=== PATIENT | male | born 1935 | race American Indian/Alaskan Native ===

== ENCOUNTER 2017-05-16 14:01 | Emergency (ER) | payer MEDICARE ==
[2017-05-16 14:01] VITALS: BMI 25.8
[2017-05-16 14:11] VITALS: RESP 18
[2017-05-16] MEDS ORDERED: Sodium Chloride 0.9% 1,000 ML IV ONE (14:28)
[2017-05-16 14:55] LABS: BASO # 0.1 K/uL (0.0-0.2); BASO % 0.8 % (0.0-2.0); EOS # 0.3 K/uL (0.0-0.7); EOS % 4.2 % (0.0-4.0); HEMATOCRIT 43.3 % (35.0-51.0); LYMPH # 2.1 K/uL (1.0-4.3); LYMPH % 31.3 % (20.0-40.0); MEAN CORPUSCULAR HEMOGLOBIN 29.2 pg (27.0-31.0); MEAN CORPUSCULAR HGB CONC 33.4 g/dL (33.0-37.0); MONO # 0.7 K/uL (0.0-0.8); MONO % 10.2 % (0.0-10.0); NRBC % 0.1 % (0.0-2.0); RBC URINE 25 /hpf (0-3); RED CELL DISTRIBUTION WIDTH 15.7 % (11.5-14.5); URINE BACTERIA RARE (<OCC); URINE BILIRUBIN NEGATIVE (NEGATIVE); URINE COLOR Yellow (YELLOW); URINE GLUCOSE (UA) NORMAL (Normal); URINE KETONE TRACE mg/dL (NEGATIVE); URINE LEUKOCYTE ESTERASE 3+ Leu/uL (Negative); URINE PROTEIN NEGATIVE (NEGATIVE); URINE UROBILINOGEN NORMAL mg/dL (0.2-1.0); WBC URINE 119 /hpf (0-5); WHITE BLOOD COUNT 6.8 K/uL (4.8-10.8)
[2017-05-16 14:56] LABS: MEAN CELL VOLUME 87.2 fL (80.0-94.0); URINE BLOOD 1+ (NEGATIVE)
[2017-05-16 14:59] LABS: CHLORIDE 104 mmol/L (98-107); SODIUM 137 mmol/L (132-148)
[2017-05-16 15:01] LABS: ALB/GLOB RATIO 1.1 (1.0-2.1); AST/SGOT 24 U/L (17-59); BILIRUBIN,TOTAL 0.4 mg/dL (0.2-1.3); GFR AFRICAN-AMERICAN > 60; TOTAL PROTEIN 7.5 g/dL (6.3-8.3)
[2017-05-16 15:02] LABS: ALKALINE PHOSPHATASE 66 U/L (38-126); ALT/SGPT 40 U/L (21-72); BLOOD UREA NITROGEN 15 mg/dL (9-20); CALCIUM 8.7 mg/dl (8.6-10.4); GLUCOSE,RANDOM 82 mg/dL (75-110)
[2017-05-16 15:18] LABS: CARBON DIOXIDE 23 mmol/L (22-30)
--- NOTE | 2017-05-16 15:36 | CT ---
PROCEDURE: CT Abdomen and Pelvis without intravenous contrast HISTORY: right low back/flank pain, r/o kidney stone COMPARISON: None. TECHNIQUE: Without contrast.. Contrast Dose: 0 Radiation dose: Total exam DLP = 527.42 mGy-cm. This CT exam was performed using one or more of the following dose reduction techniques: Automated exposure control, adjustment of the mA and/or kV according to patient size, and/or use of iterative reconstruction technique. FINDINGS: LOWER THORAX: Unremarkable. LIVER: Unremarkable. No gross lesion or ductal dilatation. GALLBLADDER AND BILE DUCTS: Unremarkable. PANCREAS: Unremarkable. No gross lesion or ductal dilatation. SPLEEN: Unremarkable. ADRENALS: Unremarkable. No mass. 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 No renal mass, calculus or hydronephrosis. VASCULATURE: Unremarkable. No aortic aneurysm. BOWEL: Unremarkable. No obstruction. No gross mural thickening. APPENDIX: Unremarkable. Normal appendix. PERITONEUM: Unremarkable. No free fluid. No free air. LYMPH NODES: Unremarkable. No enlarged lymph nodes. BLADDER: Unremarkable. REPRODUCTIVE: Mild prostate enlargement. BONES: Osteoarthritis of both hips, left greater than right. Extensive subchondral cyst formation. No acute fracture. OTHER FINDINGS: None. IMPRESSION: No evidence of urinary calculus or urinary tract obstruction. 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 Mild prostate enlargement.
--- NOTE | 2017-05-16 15:56 | C.PDOC ---
History Of Present Illness 81 year old male, with past medical history of UTIs, presents to the ED with complaints of constant right lower back pain for two weeks. Pain is non- radiating, and not associated with any nausea, vomiting, fever, dysuria/ hematuria. Patient was sent to ED by Urologist Dr. Davis for concern of possible kidney stone. Time Seen by Provider: 05/16/17 14:16 Chief Complaint (Nursing): Back Pain History Per: Patient History/Exam Limitations: no limitations Onset/Duration Of Symptoms: Persistent (2 weeks) Current Symptoms Are (Timing): Still Present Quality Of Discomfort: "Pain" Previous Symptoms: None Associated Symptoms: None Recent travel outside of the [place]: No Past Medical History Reviewed: Historical Data, Nursing Documentation, Vital Signs Vital Signs: Last Vital Signs Temp 97.8 F 05/16/17 16:15 Pulse 54 L 05/16/17 16:15 Resp 18 05/16/17 16:15 BP 137/78 05/16/17 16:15 Pulse Ox 96 05/16/17 16:47 Family History: States: No Known Family Hx - Social History Hx Alcohol Use: No Hx Substance Use: No - Immunization History Hx Tetanus Toxoid Vaccination: No Hx Influenza Vaccination: No Hx Pneumococcal Vaccination: No Review Of Systems Except As Marked, All Systems Reviewed And Found Negative. Constitutional: Negative for: Fever, Chills Cardiovascular: Negative for: Chest Pain, Palpitations Gastrointestinal: Negative for: Nausea, Vomiting, Abdominal Pain, Diarrhea Genitourinary: Negative for: Dysuria, Incontinence, Hematuria Musculoskeletal: Positive for: Back Pain Neurological: Negative for: Weakness, Numbness Physical Exam - Physical Exam Appears: Well, Non-toxic, No Acute Distress Skin: Warm, Dry, No Rash Head: Normacephalic Eye(s): bilateral: Other (opaque appearing corneas bilaterally ) Oral Mucosa: Moist Neck: Supple Cardiovascular: Rhythm Regular Respiratory: Normal Breath Sounds, No Rales, No Rhonchi, No Wheezing Gastrointestinal/Abdominal: Normal Exam, Bowel Sounds, Soft, No Tenderness Back: No CVA Tenderness, No Vertebral Tenderness, Paraspinal Tenderness (right paralumbar tenderness ) Neurological/Psych: Oriented x3 ED Course And Treatment - Laboratory Results Result Diagrams: 05/16/17 14:47 05/16/17 14:47 O2 Sat by Pulse Oximetry: 96 (room air ) Pulse Ox Interpretation: Normal - CT Scan/US CT ABD/PELVIS Other Rad Studies (CT/US): Read By Radiologist, Radiology Report Reviewed CT/US Interpretation: Accession No. : [id number]. Patient Name / ID : MARLA Prieto / [id number]. Exam Date : 05/16/2017 14:57:08 ( Approved ). Study Comment : Sex / Age : M / 81Y. Creator : JS VIERA MD. Dictator : JS VIERA MD. Manager Of International : Sales And Marketing Vice President : JS VIERA MD. Approver2 : Report Date : 05/16/2017 15:35:13. My Comment : . PROCEDURE: CT Abdomen and Pelvis without intravenous contrast. HISTORY: right low back/flank pain, r/o kidney stone. COMPARISON: None. TECHNIQUE: Without contrast.. Contrast Dose: 0. Radiation dose: Total exam DLP = 527.42 mGy-cm. This CT exam was performed using one or more of the following dose reduction techniques: Automated exposure control, adjustment of the mA and/or kV according to patient size, and/or use of iterative reconstruction technique. FINDINGS: LOWER THORAX: Unremarkable. LIVER: Unremarkable. No gross lesion or ductal dilatation. GALLBLADDER AND BILE DUCTS: Unremarkable. PANCREAS: Unremarkable. No gross lesion or ductal dilatation. SPLEEN: Unremarkable. ADRENALS: Unremarkable. No mass. 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 No renal mass, calculus or hydronephrosis. VASCULATURE: Unremarkable. No aortic aneurysm. BOWEL: Unremarkable. No obstruction. No gross mural thickening. APPENDIX: Unremarkable. Normal appendix. PERITONEUM: Unremarkable. No free fluid. No free air. LYMPH NODES: Unremarkable. No enlarged lymph nodes. BLADDER: Unremarkable. REPRODUCTIVE: Mild prostate enlargement. BONES: Osteoarthritis of both hips, left greater than right. Extensive subchondral cyst formation. No acute fracture. OTHER FINDINGS: None. IMPRESSION: No evidence of urinary calculus or urinary tract obstruction. 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 Mild prostate enlargement. Progress Note: Blood work, UA, CT abd/pelvis ordered and reviewed. Patient given IV NS bolus, IV toradol. PO Cipro given for UTI. Reevaluation Time: 16:10 Reassessment Condition: Improved (Patient reassessed, is currently resting comfortably, states his pain has improved and he feels better. UA shows UTI, Rx given for Ciprofloxacin & Naprosyn. CT scan (-) for kidney stone. patient instructed to follow up with Dr. Davis in 1-2 days, and he understands he should return to Ed if symptoms worsen.) Disposition Counseled Patient/Family Regarding: Studies Performed, Diagnosis, Need For Followup, Rx Given - Disposition Referrals: Saurabh Davis MD [Staff Provider] - Disposition: HOME/ ROUTINE Disposition Time: 16:10 Condition: STABLE Additional Instructions: FOLLOW UP WITH UROLOGY WITHIN 1 WEEK USE MEDICATIONS DIRECTED RETURN TO ER IF SYMPTOMS WORSEN Prescriptions: Ciprofloxacin [Cipro] 1 tab PO BID #14 tab Naproxen [Naprosyn Tab] 375 mg PO BID PRN #20 tab PRN Reason: pain Instructions: Urinary Tract Infection in Men (ED), Back Pain (ED) Forms: [employer] (Bruneian) Print Language: SOUTH AFRICAN - Clinical Impression Clinical Impression: Low back pain, UTI (urinary tract infection) - Scribe Statement The provider has reviewed the documentation as recorded by the Scribe Marilyn Mclaughlin All medical record entries made by the Scribe were at my direction and personally dictated by me. I have reviewed the chart and agree that the record accurately reflects my personal performance of the history, physical exam, medical decision making, and the department course for this patient. I have also personally directed, reviewed, and agree with the discharge instructions and disposition.
[2017-05-16 16:16] VITALS: BP 137/78; PULSE 54; TEMP 97.8
[2017-05-16 16:41] VITALS: O2SAT 96
== END 2017-05-16 16:30 | disposition home or self-care (01) ==
LOC: C.ER 14:01
DX: M54.5 Low back pain (principal); N39.0 Urinary tract infection, site not specified
CPT/HCPCS: 74176; 80053; 81001; 85025; 87086; 96361; 96374; 99284; J1885; J7040

== ENCOUNTER 2017-06-01 10:45 | Emergency (ER) | payer MEDICARE ==
[2017-06-01 10:45] VITALS: BMI 25.8
[2017-06-01 10:59] VITALS: BP 98/64; PULSE 87; RESP 20; TEMP 97.5; O2SAT 99
--- NOTE | 2017-06-01 11:59 | C.PDOC ---
History Of Present Illness 81 yr old male presents to the ER stating for the past 2-3 days he has been experiencing pain to the right hip and right lower back, radiating down the leg. Patient states the pain is worsened with movement and when he walks. Patient denies trauma, abdominal pain, diarrhea, dysuria, incontinence, weakness or numbness. Time Seen by Provider: 06/01/17 11:17 Chief Complaint (Nursing): Lower Extremity Problem/Injury History Per: Patient History/Exam Limitations: no limitations Onset/Duration Of Symptoms: Days (2-3 days) Past Medical History Reviewed: Historical Data, Nursing Documentation, Vital Signs Vital Signs: Last Vital Signs Temp 97.5 F L 06/01/17 10:55 Pulse 87 06/01/17 10:55 Resp 20 06/01/17 10:55 BP 98/64 L 06/01/17 10:55 Pulse Ox 99 06/01/17 12:02 Family History: States: No Known Family Hx - Social History Hx Alcohol Use: No Hx Substance Use: No - Immunization History Hx Tetanus Toxoid Vaccination: No Hx Influenza Vaccination: No Hx Pneumococcal Vaccination: No Review Of Systems Except As Marked, All Systems Reviewed And Found Negative. Gastrointestinal: Negative for: Abdominal Pain, Diarrhea Genitourinary: Negative for: Dysuria, Incontinence Musculoskeletal: Positive for: Back Pain (Right lower back pain), Other ((+) Right hip pain.) Neurological: Negative for: Weakness, Numbness Physical Exam - Physical Exam Appears: Non-toxic, No Acute Distress Skin: Warm, Dry, No Rash Head: Atraumatic, Normacephalic Eye(s): bilateral: Normal Inspection Oral Mucosa: Moist Neck: Normal ROM, No Midline Cervical Tenderness, No Paracervical Tenderness, Supple Chest: Symmetrical, No Tenderness Cardiovascular: Rhythm Regular, No Murmur Respiratory: Normal Breath Sounds, No Rales, No Rhonchi, No Stridor, No Wheezing Gastrointestinal/Abdominal: Normal Exam, Soft, No Tenderness, No Guarding, No Rebound Back: Normal Inspection, No CVA Tenderness, No Vertebral Tenderness Extremity: Normal ROM, No Calf Tenderness, Capillary Refill (<2 secs), No Swelling Neurological/Psych: Oriented x3, Normal Speech, Normal Motor Gait: Steady ED Course And Treatment O2 Sat by Pulse Oximetry: 99 (RA) Pulse Ox Interpretation: Normal Medical Decision Making Medical Decision Making: PLAN: * X-Ray - Right Hip w/ Pelvis * Tylenol PO * Prednisone PO On re-exam, the patient reports the improvement of symptoms. Lungs are CTA, Lungs are CTA, Abdomen is soft, non-tender and patient is tolerating PO well. Patient is ambulatory in the ED with the steady gait. Follow up with the medical doctor within 1-2 days. Return if worsened. Disposition - Disposition Referrals: Devon Lopez DO [Doctor Osteopathy] - Disposition: HOME/ ROUTINE Disposition Time: 12:38 Condition: GOOD Additional Instructions: Follow up with the medical doctor within 1-2 days. Return if worsened. Prescriptions: Acetaminophen [Tylenol] 325 mg PO Q6 PRN #30 tab PRN Reason: Pain, Mild (1-3) Cyclobenzaprine [Flexeril] 5 mg PO TID #21 tab predniSONE [Prednisone] 20 mg PO BID #10 tab Instructions: Arthritis (ED) Forms: [employer] (Khmer) - Clinical Impression Clinical Impression: Arthritis, Low back pain - PA / INPATIENT NURSING AIDE / Resident Statement / has reviewed & agrees with the documentation as recorded. - Scribe Statement The provider has reviewed the documentation as recorded by the Scribe Bhavani Santoyo All medical record entries made by the Juanitaibdaisy were at my direction and personally dictated by me. I have reviewed the chart and agree that the record accurately reflects my personal performance of the history, physical exam, medical decision making, and the department course for this patient. I have also personally directed, reviewed, and agree with the discharge instructions and disposition.
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
== END 2017-06-01 13:00 | disposition home or self-care (01) ==
LOC: C.ER 10:45
DX: M54.5 Low back pain (principal); M16.11 Unilateral primary osteoarthritis, right hip

== ENCOUNTER 2017-06-14 18:18 | Emergency (ER) | payer MEDICARE ==
[2017-06-14 18:18] VITALS: BMI 25.8
[2017-06-14 18:28] VITALS: RESP 18; TEMP 97.8; O2SAT 99
[2017-06-14 19:09] LABS: RBC URINE 13 /hpf (0-3); URINE BACTERIA FEW (<OCC); URINE BILIRUBIN NEGATIVE (NEGATIVE); URINE BLOOD 1+ (NEGATIVE); URINE COLOR Yellow (YELLOW); URINE GLUCOSE (UA) NORMAL (Normal); URINE KETONE NEGATIVE (NEGATIVE); URINE LEUKOCYTE ESTERASE 3+ Leu/uL (Negative); URINE PROTEIN NEGATIVE (NEGATIVE); WBC URINE 128 /hpf (0-5)
--- NOTE | 2017-06-14 19:35 | C.PDOC ---
History Of Present Illness 81 yo male come in for re-evaluation of Right groin and hip pain for past months associated with Right sided lower back pain. Pt sts, for past few weeks developed suprapubic discomfort. Pt sts, was seen here week ago due to same complaints, "took given medication without improvement in pain. I thing, I have an UTI". P reports, pain is localized over Right lower back radiating to Right hip/Right leg and worse with ambulation. Otherwise, pt denies fever, chills, CP , SOB, dyspnea, cough, abd. pain, N/V, denies urinary frequency or penile discharges, denies skin changes, deformity over Right hip, denies saddle anesthesia, incontinence, weakness, sensory or vascular deficits to RLE. Ambulate to Ed for evaluation, not in any apparent distress. FYI: records from previous visit to ED review, last pt was seen here on 05/16/17 due to back pain, UTI sx, CT abd/plevis performed without acute abnoramlities, pt was sent home with Cipro. UCx review (-). Pt was seen on 06/01/17 due to Right hip pain when xray of pelvis/ Right hip done (+) arthritis, n oacute fx or dislocation. Time Seen by Provider: 06/14/17 18:44 Chief Complaint (Nursing): Hip Pain History Per: Patient History/Exam Limitations: no limitations Onset/Duration Of Symptoms: Days (1 month) Current Symptoms Are (Timing): Still Present Recent travel outside of the [place]: No Past Medical History Reviewed: Historical Data, Nursing Documentation, Vital Signs Vital Signs: Last Vital Signs Temp 97.8 F 06/14/17 18:23 Pulse 92 H 06/14/17 20:54 Resp 18 06/14/17 20:54 BP 113/76 06/14/17 20:54 Pulse Ox 99 06/14/17 20:54 Family History: States: No Known Family Hx - Social History Hx Alcohol Use: No Hx Substance Use: No - Immunization History Hx Tetanus Toxoid Vaccination: No Hx Influenza Vaccination: No Hx Pneumococcal Vaccination: No Review Of Systems Except As Marked, All Systems Reviewed And Found Negative. Constitutional: Negative for: Fever, Chills Cardiovascular: Negative for: Chest Pain Respiratory: Negative for: Cough, Shortness of Breath Gastrointestinal: Negative for: Nausea, Vomiting, Abdominal Pain Genitourinary: Positive for: Other ((+) Right groin pain). Negative for: Penile Discharge Musculoskeletal: Positive for: Other ((+) Right hip pain) Skin: Negative for: Rash Neurological: Negative for: Weakness, Numbness Physical Exam - Physical Exam Appears: Well, Non-toxic, No Acute Distress Skin: Normal Color, Warm, Dry, No Rash Eye(s): bilateral: PERRL Nose: No Discharge Throat: No Erythema, No Exudate, No Drooling Neck: Supple Cardiovascular: Rhythm Regular Respiratory: No Decreased Breath Sounds, No Accessory Muscle Use, No Rales, No Rhonchi, No Stridor, No Wheezing Gastrointestinal/Abdominal: Soft, Tenderness (mild suprapubic tenderness), No Distention, No Guarding, No Rebound Back: No CVA Tenderness, No Vertebral Tenderness, Paraspinal Tenderness (Right lumbar paraspinal tenderness.) Extremity: Tenderness (mild tenderness overlying Right hip area, no deformity, no shortening. No skin changes.), No Pedal Edema, No Calf Tenderness (B/L), No Deformity, No Swelling Neurological/Psych: Oriented x3, Normal Speech, Normal Motor, Normal Sensation, Normal Reflexes ED Course And Treatment O2 Sat by Pulse Oximetry: 99 (RA) Pulse Ox Interpretation: Normal () Progress Note: On re-evaluation, pt is afebrile, hemodynamicaly stable. Ambulatory in ED with stable gait. Abd: benign, (-) guaridng, (-) rebound. Back: (-) CVA tenderness. Neurologicaly intact. UA results review and c/w UTI. UCx-pending. Abx given. Pt has clinical findings c/w Right lumbar radiculopathy/Right hip arthralgia/arthritis, UTI. Pt advised and ref. to f/u with PMD in 2-3 days for re-eval. return to ED if any worsening or new changes. Medical Decision Making Medical Decision Making: PLAN: * Urinalysis * Rocephin IVPB Disposition Counseled Patient/Family Regarding: Studies Performed, Diagnosis, Need For Followup, Rx Given - Disposition Referrals: Saurabh Davis MD [Staff Provider] - Disposition: HOME/ ROUTINE Disposition Time: 19:54 Condition: STABLE Additional Instructions: Light duty to Right hip Take medication as prescribed Follow up with PMD and Ortho, consider PT in 2 days for re-evaluation. Return to ED if any worsening or new changes. Prescriptions: Cefdinir [Omnicef] 300 mg PO BID #14 cap traMADol [Ultram] 50 mg PO TID #7 tab Instructions: Urinary Tract Infection in Men (ED), Lumbar Radiculopathy (ED), Hip Pain (ED), Arthritis (ED) Forms: [employer] (Singaporean) - Clinical Impression Clinical Impression: UTI (urinary tract infection), Osteoarthritis of hip, Lumbar radiculopathy - PA / WIRE TESTER / Resident Statement MD/DO has reviewed & agrees with the documentation as recorded. - Scribe Statement The provider has reviewed the documentation as recorded by the Scribe Bhavani Santoyo All medical record entries made by the Juanitaibdaisy were at my direction and personally dictated by me. I have reviewed the chart and agree that the record accurately reflects my personal performance of the history, physical exam, medical decision making, and the department course for this patient. I have also personally directed, reviewed, and agree with the discharge instructions and disposition.
[2017-06-14] MEDS ORDERED: cefTRIAXone IV 1 gm in Dextros 50 ML IVPB ONE (19:54)
[2017-06-14 21:00] VITALS: BP 113/76; PULSE 92
== END 2017-06-14 20:55 | disposition home or self-care (01) ==
LOC: C.ER 18:18
DX: N39.0 Urinary tract infection, site not specified (principal); M54.16 Radiculopathy, lumbar region; M16.11 Unilateral primary osteoarthritis, right hip
CPT/HCPCS: 81001; 87086; 96365; 99284; J0696

== ENCOUNTER 2017-07-09 07:51 | Emergency (ER) | payer MEDICARE ==
[2017-07-09 08:03] VITALS: BMI 24.4
[2017-07-09 08:07] VITALS: O2SAT 100
--- NOTE | 2017-07-09 08:26 | C.PDOC ---
History Of Present Illness Patient is a 81 y/o M presenting with months long history of back pain. Patient reports that he has been told he has arthritis and sciatica. (CT abd/ pelvis on 05/16 negative for renal stones or anerysm but showed "osteoarthritis hip and prostate enlargement." Xray on 06/01 negative for fracture). Patient reports that he has R sided back pain radiating into his R gluteal area with radiation into R leg. He reports that he presented to ED because he has been urinating frequently and previously was diagnosed with uti and wants to make sure he does not have another one. Denies fever, abdominal pain, weakness, numbness, tingling, vomiting, dysuria, hematuria. Time Seen by Provider: 07/09/17 08:15 Chief Complaint (Nursing): Back Pain Past Medical History Vital Signs: Last Vital Signs Temp 98.1 F 07/09/17 11:01 Pulse 66 07/09/17 11:01 Resp 19 07/09/17 11:01 BP 128/73 07/09/17 11:01 Pulse Ox 100 07/09/17 16:49 - Medical History PMH: Arthritis ( PER PATIENT DIAGNOSED ONE YEAR AGO) Denies: Chronic Kidney Disease Family History: States: Unknown Family Hx - Social History Hx Alcohol Use: No Hx Substance Use: No - Immunization History Hx Tetanus Toxoid Vaccination: No Hx Influenza Vaccination: No Hx Pneumococcal Vaccination: No Review Of Systems Constitutional: Negative for: Fever Cardiovascular: Negative for: Chest Pain Respiratory: Negative for: Cough, Shortness of Breath, SOB with Excertion, Wheezing Gastrointestinal: Negative for: Nausea, Vomiting, Abdominal Pain, Diarrhea, Constipation Genitourinary: Positive for: Frequency. Negative for: Dysuria, Incontinence, Hematuria, Penile Discharge, Scrotal Pain, Penile Pain Musculoskeletal: Positive for: Back Pain (radiating into R buttock and R leg) Neurological: Negative for: Weakness, Numbness, Incoordination, Confusion, Seizures, Altered Mental Status, Headache, Dizziness Physical Exam - Physical Exam Appears: Well, Non-toxic, No Acute Distress Skin: Normal Color, Warm, Dry Head: Atraumatic, Normacephalic Eye(s): bilateral: Normal Inspection, PERRL, EOMI Neck: Supple Chest: Symmetrical Cardiovascular: Rhythm Regular Respiratory: Normal Breath Sounds, No Rales, No Rhonchi Gastrointestinal/Abdominal: Soft, No Tenderness, No Mass, No Distention Back: No CVA Tenderness, Other (tenderness to R gluteal muscle) Extremity: Normal ROM, No Tenderness Neurological/Psych: Oriented x3 Gait: Steady ED Course And Treatment - Laboratory Results Result Diagrams: 07/09/17 08:39 07/09/17 08:39 O2 Sat by Pulse Oximetry: 100 Medical Decision Making Medical Decision Making: Symptoms consistent with sciatica. Neurologically intact. Recent CT and imaging. No new falls. Will give pain medication. R/o uti 11:08AM Patient is afebrile, well appearing, and tolerating po. Normal wbc. UA positive. Will dc with antibiotics and urology follow-up Disposition - Disposition Referrals: Saurabh Davis MD [Staff Provider] - Disposition: HOME/ ROUTINE Disposition Time: 11:09 Condition: GOOD Additional Instructions: Follow-up with PMD within 2 days. Follow-up with urology. Take full course of antibiotics. Return to ED if condition worsens. Prescriptions: Cyclobenzaprine [Cyclobenzaprine HCl] 10 mg PO TID #20 tab Nitrofurantoin Macrocrystals [Macrobid] 100 mg PO BID #20 cap Instructions: Urinary Tract Infection in Men (ED), Osteoarthritis (ED), Sciatica (ED) Forms: [employer] (Moroccan) - Clinical Impression Clinical Impression: UTI (urinary tract infection), Sciatica
[2017-07-09] MEDS ORDERED: diaZEpam 10 mg/2 ml Inj IVP STA (08:40)
[2017-07-09 08:48] LABS: BASO # 0.1 K/uL (0.0-0.2); BASO % 0.7 % (0.0-2.0); EOS # 0.3 K/uL (0.0-0.7); EOS % 4.2 % (0.0-4.0); HEMATOCRIT 42.2 % (35.0-51.0); LYMPH # 1.5 K/uL (1.0-4.3); LYMPH % 19.5 % (20.0-40.0); MEAN CELL VOLUME 87.9 fL (80.0-94.0); MEAN CORPUSCULAR HEMOGLOBIN 29.5 pg (27.0-31.0); MEAN CORPUSCULAR HGB CONC 33.6 g/dL (33.0-37.0); MEAN PLATELET VOLUME 8.6 fL (7.2-11.7); MONO # 0.5 K/uL (0.0-0.8); MONO % 6.2 % (0.0-10.0); NRBC % 0.1 % (0.0-2.0); RED CELL DISTRIBUTION WIDTH 16.4 % (11.5-14.5); WHITE BLOOD COUNT 7.5 K/uL (4.8-10.8)
[2017-07-09 09:07] LABS: CHLORIDE 101 mmol/L (98-107); SODIUM 133 mmol/L (132-148)
[2017-07-09 09:08] LABS: ALB/GLOB RATIO 1.3 (1.0-2.1); ALKALINE PHOSPHATASE 68 U/L (38-126); ALT/SGPT 37 U/L (21-72); AST/SGOT 29 U/L (17-59); BILIRUBIN,TOTAL 0.7 mg/dL (0.2-1.3); BLOOD UREA NITROGEN 13 mg/dL (9-20); CARBON DIOXIDE 23 mmol/L (22-30); GFR AFRICAN-AMERICAN > 60; GLUCOSE,RANDOM 100 mg/dL (75-110); TOTAL PROTEIN 7.4 g/dL (6.3-8.3)
[2017-07-09 09:09] LABS: CALCIUM 9.3 mg/dl (8.6-10.4); POTASSIUM 4.8 mmol/L (3.6-5.2)
[2017-07-09 10:37] LABS: RBC URINE 6 /hpf (0-3); URINE BACTERIA RARE (<OCC); URINE BILIRUBIN NEGATIVE (NEGATIVE); URINE BLOOD 1+ (NEGATIVE); URINE COLOR Yellow (YELLOW); URINE GLUCOSE (UA) NORMAL (Normal); URINE KETONE NEGATIVE (NEGATIVE); URINE LEUKOCYTE ESTERASE 3+ Leu/uL (Negative); URINE PROTEIN NEGATIVE (NEGATIVE); URINE UROBILINOGEN NORMAL mg/dL (0.2-1.0); WBC URINE 42 /hpf (0-5)
[2017-07-09 11:02] VITALS: BP 128/73; PULSE 66; RESP 19; TEMP 98.1
== END 2017-07-09 12:24 | disposition home or self-care (01) ==
LOC: C.ER 07:51
DX: N39.0 Urinary tract infection, site not specified (principal); M54.30 Sciatica, unspecified side; N40.0 Benign prostatic hyperplasia without lower urinary tract symptoms
CPT/HCPCS: 80053; 81001; 85025; 87086; 96374; 99285; J1885

== ENCOUNTER 2018-06-22 11:58 | Emergency (ER) | payer MEDICARE ==
[2018-06-22 11:58] VITALS: BMI 24.4
--- NOTE | 2018-06-22 13:45 | C.PDOC ---
History Of Present Illness 82 years old male with PMHx of arthritis, sciatica, and blindness(Glaucoma 2002) presents to ED for complaints of right leg swelling and pain that began 2 weeks ago. Patient's grandson at bedside. Patient also states pain is different than regular arthritis pain. Denies pain or swelling in left leg, abdominal pain, SOB, or any other physical complaints. Patient also reports use of wheel chair in February and a walker currently due to arthritis and sciatica. PMD: * No PMD but sees pain management Doctor. (Yolanda Alamo) Time Seen by Provider: 06/22/18 12:26 Chief Complaint (Nursing): Lower Extremity Problem/Injury History Per: Patient History/Exam Limitations: no limitations Onset/Duration Of Symptoms: Hrs Current Symptoms Are (Timing): Still Present Recent travel outside of the [place]: No Past Medical History Reviewed: Historical Data, Nursing Documentation, Vital Signs Vital Signs: Last Vital Signs Temp 97.9 F 06/22/18 12:02 Pulse 90 06/22/18 12:02 Resp 18 06/22/18 12:02 BP 130/82 06/22/18 12:02 Pulse Ox 99 06/22/18 12:02 - Medical History PMH: Arthritis ( PER PATIENT DIAGNOSED ONE YEAR AGO) Family History: States: Unknown Family Hx - Social History Hx Alcohol Use: No Hx Substance Use: No - Immunization History Hx Tetanus Toxoid Vaccination: No Hx Influenza Vaccination: No Hx Pneumococcal Vaccination: No Review Of Systems Constitutional: Negative for: Fever, Chills Respiratory: Negative for: Shortness of Breath Gastrointestinal: Negative for: Nausea, Vomiting, Abdominal Pain, Diarrhea Musculoskeletal: Positive for: Leg Pain (Right leg associated with swelling ) Skin: Positive for: Other (Scabs). Negative for: Rash Neurological: Negative for: Weakness, Numbness Physical Exam - Physical Exam Appears: Non-toxic, No Acute Distress Skin: Warm, Dry, No Rash, Other (Scabs on bilateral lower extremities ) Head: Atraumatic, Normacephalic Eye(s): bilateral: Normal Inspection, PERRL, EOMI Oral Mucosa: Moist Neck: Supple Chest: Symmetrical, No Tenderness Cardiovascular: Rhythm Regular, No Murmur Respiratory: Normal Breath Sounds, No Decreased Breath Sounds, No Rales, No Rhonchi, No Wheezing Gastrointestinal/Abdominal: Bowel Sounds (Active ), Soft, No Tenderness Extremity: Normal ROM, Tenderness (Right right anteriorly and right hip ), Other (Significant edema to right lower extremity from knee down with continuous changes and tenderness throughout ) Neurological/Psych: Oriented x3, Normal Speech, Other (No focal deficits ) Gait: With Assistance ED Course And Treatment - Laboratory Results Result Diagrams: 06/22/18 17:10 06/22/18 17:10 O2 Sat by Pulse Oximetry: 99 (RA) Pulse Ox Interpretation: Normal Medical Decision Making Medical Decision Making: Plan: * Vascular lab * * Patient c/o edema and pain to left LE. No DVT, cardiac labs and BNP wnl. most likely PVD, will d/c. Disposition Counseled Patient/Family Regarding: Studies Performed, Need For Followup - Disposition Disposition: HOME/ ROUTINE Disposition Time: 19:33 Condition: IMPROVED Instructions: Dependent Edema (DC) Forms: [facility] ([place]), General Discharge Instructions - POA Present On Arrival: None - Clinical Impression Clinical Impression: PVD (peripheral vascular disease) - Scribe Statement The provider has reviewed the documentation as recorded by the Scribdaisy Brandon All medical record entries made by the Scribe were at my direction and personally dictated by me. I have reviewed the chart and agree that the record accurately reflects my personal performance of the history, physical exam, medical decision making, and the department course for this patient. I have also personally directed, reviewed, and agree with the discharge instructions and disposition.
[2018-06-22 17:34] LABS: BASO # 0.1 K/uL (0.0-0.2); BASO % 1.4 % (0.0-2.0); EOS # 0.3 K/uL (0.0-0.7); EOS % 4.2 % (0.0-4.0); HEMOGLOBIN 13.5 g/dL (12.0-18.0); LYMPH # 1.7 K/uL (1.0-4.3); LYMPH % 22.6 % (20.0-40.0); MEAN CELL VOLUME 84.6 fL (80.0-94.0); MEAN CORPUSCULAR HEMOGLOBIN 28.6 pg (27.0-31.0); MEAN CORPUSCULAR HGB CONC 33.8 g/dL (33.0-37.0); MEAN PLATELET VOLUME 8.2 fL (7.2-11.7); MONO # 0.6 K/uL (0.0-0.8); MONO % 7.5 % (0.0-10.0); NEUT # 4.9 K/uL (1.8-7.0); NEUT % 64.3 % (50.0-75.0); NRBC % 0.1 % (0.0-2.0); RBC 4.73 Mil/uL (4.40-5.90); RED CELL DISTRIBUTION WIDTH 16.7 % (11.5-14.5); WHITE BLOOD COUNT 7.6 K/uL (4.8-10.8)
--- NOTE | 2018-06-22 17:55 | RAD ---
Date of service: 06/22/2018 PROCEDURE: CHEST RADIOGRAPH, 1 VIEW HISTORY: chest pain COMPARISON: The the comparison chest the 01/25/16. FINDINGS: LUNGS: Minor bibasilar atelectasis she is left greater than right. PLEURA: No pneumothorax or pleural fluid seen. CARDIOVASCULAR: Heart appears mildly enlarged. OSSEOUS STRUCTURES: No significant abnormalities. VISUALIZED UPPER ABDOMEN: Normal. OTHER FINDINGS: None. IMPRESSION: Minor bibasilar atelectasis she is left greater than right.
[2018-06-22 17:57] LABS: ALB/GLOB RATIO 1.1 (1.0-2.1); ALT/SGPT 18 U/L (21-72); AST/SGOT 22 U/L (17-59); BLOOD UREA NITROGEN 10 mg/dL (9-20); CALCIUM 9.4 mg/dl (8.6-10.4); GFR NON-AFRICAN AMERICAN > 60
[2018-06-22 18:09] LABS: B-TYPE NATRIURETIC PEPTIDE 101 pg/mL (0-900)
[2018-06-22 18:22] VITALS: RESP 16
[2018-06-22 19:55] VITALS: TEMP 98.8
[2018-06-22 19:58] VITALS: BP 115/75; PULSE 76; O2SAT 100
--- NOTE | 2018-06-24 20:59 | CARD ---
APPROVED REPORT Date of service: 06/22/2018 EKG Measurement Heart [id number] <Conclusion> Normal sinus rhythm Normal ECG
--- NOTE | 2018-06-26 11:32 | VASCLAB ---
Date of service: 06/22/2018 PROCEDURE: Right Lower Extremity Venous Duplex Exam. HISTORY: swollen and painful X 2 weeks PRIORS: None. TECHNIQUE: Right common femoral, femoral, popliteal and posterior tibial, peroneal and great saphenous veins were evaluated. Flow was assessed with color Doppler, compressibility, assessment of phasic flow and augmentation response. Report prepared by Manisha Fry, BRUCE, RVS FINDINGS: RIGHT: 1. Common Femoral Vein: 1.1. Compressibility - Fully compressible: Thrombus - None: Flow - Phasic: Augmentation -Normal: Reflux - None. 2. Femoral Vein: 2.1. Compressibility - Fully compressible: Thrombus - None: Flow - Phasic: Augmentation -Normal: Reflux - None. 3. Popliteal Vein: 3.1. Compressibility - Fully compressible: Thrombus - None: Flow - Phasic: Augmentation -Normal: Reflux - None. 4. Posterior Tibial Vein: 4.1. Compressibility - Fully compressible: Thrombus - None: Flow - Phasic: Augmentation -Normal: Reflux - None. 5. Peroneal Vein: 5.1. Compressibility - Fully compressible: Thrombus - None: Flow - Phasic: Augmentation -Normal: Reflux - None. 6. Great Saphenous Vein: 6.1. Compressibility - Fully compressible: Thrombus -None: Flow - Phasic: Augmentation - Normal: Reflux - None. OTHER FINDINGS: IMPRESSION: No evidence of deep or superficial vein thrombosis of the right lower extremity with excellent venous flow. Normal valve function noted of the right side. Normal venous flow noted in the left common femoral vein.
== END 2018-06-22 19:56 | disposition home or self-care (01) ==
LOC: C.ER 11:58
DX: I73.9 Peripheral vascular disease, unspecified (principal)

== ENCOUNTER 2019-01-10 10:35 | Outpatient (CLI) | payer MEDICARE | END 2019-01-10 10:36 | disposition home or self-care (01) | LOC: C.RADH 10:35 ==